=== PATIENT | female | born 1980 | race Caucasian/White ===

== ENCOUNTER → 2018-04-02 | Outpatient (CLI) | payer BC ==
--- NOTE | 2018-04-03 10:43 | MM ---
Reason for exam: additional evaluation requested from prior study. Last mammogram was performed 9 years and 10 months ago. History: Patient had first child at age 33. Family history of breast cancer in grandmother at age 42 and breast cancer in maternal aunt at age 37. Reductions of both breasts, 2007. Taking hormonal contraceptives for 10 years beginning at age 18. Physical Findings: Nurse Summary: less than 0.5cm nodule in the right breast at 12 o'clock and 5 o'clock (nurse sharee). MG 3D Diag Mammo W/Cad MARINA Bilateral CC and MLO view(s) were taken. Prior study comparison: June 15, 2008, bilateral digital screening mammogram. The breast tissue is heterogeneously dense. This may lower the sensitivity of mammography. Scattered benign calcifications. There is no discrete abnormality. No significant new findings when compared with previous films. These results were verbally communicated with the patient and result sheet given to the patient on 04/02/18. ASSESSMENT: Incomplete: need additional imaging evaluation, BI-RAD 0 RECOMMENDATION: Ultrasound of both breasts.
--- NOTE | 2018-04-03 10:46 | USB ---
Reason for exam: additional evaluation requested from abnormal screening. History: Patient had first child at age 33. Family history of breast cancer in grandmother at age 42 and breast cancer in maternal aunt at age 37. Reductions of both breasts, 2007. Taking hormonal contraceptives for 10 years beginning at age 18. US Breast BILAT Right complete breast ultrasound includes all four quadrants, the retroareolar region and axilla. Finding demonstrates no cystic or solid lesion seen. Left complete breast ultrasound includes all four quadrants, the retroareolar region and axilla. Finding demonstrates a 0.7 x 0.8 x 0.4cm oval, solid, duct ectasia at the posterior nipple for which a biopsy is recommended. These results were verbally communicated with the patient and result sheet given to the patient on 04/02/18. ASSESSMENT: Suspicious, BI-RAD 4 RECOMMENDATION: Ultrasound core biopsy of the left breast. Manage patient on a clinical basis. Called Dr. Peralta with mammographic findings and has scheduled an appointment for the patient for 04/30/18 at 9:[address] Castro. Biopsy scheduled for 04/21/18 at 12:20. PRELIMINARY REPORT CALLED AND FAXED TO DR. CASTRO ON 04/03/18.
== END | disposition home or self-care (01) ==
LOC: RADMAMWWP 15:07
PROVIDERS: ATTEND Family Medicine
DX: R92.8 Other abnormal and inconclusive findings on diagnostic imaging of breast (principal); N63.0 Unspecified lump in unspecified breast
CPT/HCPCS: 77062; 77066

== ENCOUNTER → 2018-04-21 | Day surgery (SDC) | payer BC ==
[2018-04-21 11:45] VITALS: RESP 16; TEMP 98.1; BMI 31.4
--- NOTE | 2018-04-21 13:27 | USB ---
EXAMINATION TYPE: US biopsy breast VAD LT, MG diagnostic mammo LT wo CAD DATE OF EXAM: 04/21/2018 CLINICAL HISTORY: R92.8 abnormal mammogram. Abnormal ultrasound. TECHNIQUE: Ultrasound guided core biopsy of left breast with clip placement and follow-up diagnostic two-view mammogram. COMPARISON: Mammogram and ultrasound April 02, 2018. FINDINGS: The procedure of ultrasound guided core biopsy was explained to the patient. Benefits, alternatives, and risks were discussed. An informed consent was then obtained. The patient was placed in supine positioning for imaging and for the procedure. Preprocedure ultrasound redemonstrates an oval roughly 8 mm lesion subareolar region of left breast that is taller greater than wide and fairly well-circumscribed with peripheral fluid component and more central hyperechoic component could reflect solid tissue or debris. The overlying skin was prepped and draped in usual sterile fashion. Lidocaine buffered with bicarbonate was used as anesthetic into the skin and subcutaneous tissue up to area of concern in the left breast. Lidocaine with epinephrine is used as anesthetic into the deeper tissue. Under ultrasound guidance, a 12-gauge vacuum assisted biopsy gun device was used to obtain 3 core samples. Following this, a biopsy clip was left in lesion. Lesion became virtually nonidentifiable after sampling. Lesion originally had tough hard rim but became easier to access after biopsy. The patient tolerated the procedure well without any immediate complication. The patient was kept in the radiology department for short stay after the procedure and then discharged home in stable condition. IMPRESSION: Successful, uncomplicated ultrasound guided core biopsy of area of concern in the left breast, full pathology results to follow. Low to intermediate index of suspicion noted at time of procedure. Favor debris- filled cyst. Cannot exclude papilloma. Pathology Results: Benign BREAST, LEFT, ULTRASOUND GUIDED CORE BIOPSY: Fibrocystic changes including cyst wall with adjacent stromal fibrosis and chronic inflammation. Recommendation Follow up ultrasound of the left breast in 6 months. REBECCAD
[2018-04-21 13:54] VITALS: BP 119/77; PULSE 78
== END | disposition home or self-care (01) ==
LOC: RADUSWWP 11:09
PROVIDERS: ATTEND Surgery
DX: N60.32 Fibrosclerosis of left breast (principal); Z88.2 Allergy status to sulfonamides
CPT/HCPCS: 88305; 77065; 19083; A4648; J2001

== ENCOUNTER → 2018-11-11 | Outpatient (CLI) | payer BC ==
--- NOTE | 2018-11-12 08:01 | USB ---
Reason for exam: follow-up at short interval from prior study. History: Patient had first child at age 33. Family history of breast cancer in grandmother at age 42 and breast cancer in maternal aunt at age 37. Benign US biopsy breast VAD LT of the left breast, April 21, 2018. Reductions of both breasts, 2007. Taking hormonal contraceptives for 10 years beginning at age 18. Physical Findings: Nurse did not find any significant physical abnormalities on exam. US Breast LT Left complete breast ultrasound includes all four quadrants, the retroareolar region and axilla. Finding demonstrates a 9 x 4 x 8mm oval, solid, hypoechoic lesion at the posterior nipple. These results were verbally communicated with the patient and result sheet given to the patient on 11/11/18. ASSESSMENT: Benign, BI-RAD 2 RECOMMENDATION: Routine screening mammogram of both breasts at age 41.
== END | disposition home or self-care (01) ==
LOC: RADUSWWP 15:21
PROVIDERS: ATTEND Surgery
DX: R92.8 Other abnormal and inconclusive findings on diagnostic imaging of breast (principal)

== ENCOUNTER → 2019-02-04 | Outpatient (CLI) | payer BC ==
[2019-02-04 16:19] LABS: LDL Cholesterol,Calculated 51.2 mg/dL (0.0-131.0); VLDL Calculation 24.8 mg/dL (5.00-40.00)
== END | disposition home or self-care (01) ==
LOC: LABWHC1 10:42
PROVIDERS: ATTEND Nurse Practitioner Family
DX: Z13.220 Encounter for screening for lipoid disorders (principal)
CPT/HCPCS: 36415; 80061

== ENCOUNTER → 2019-10-07 | Outpatient (CLI) | payer BC ==
--- NOTE | 2019-10-07 15:41 | MR ---
EXAMINATION TYPE: MR brain wo/w con DATE OF EXAM: 10/07/2019 COMPARISON: NONE HISTORY: Papillitis per order. History of right-sided weakness and numbness along with dizziness and hearing loss TECHNIQUE: Multiplanar, multisequence images of the brain and brainstem is performed without and with IV contras t, utilizing 8.5 mL intravenous Gadavist . FINDINGS: Diffusion weighted images demonstrate no evidence of a recent infarct or other diffusion ab normality. There is no extra-axial fluid collection or significant white matter signal abnormality. The ventricular system and cisternal spaces are normal in size and appearance. The brain volume is age appropriate. Midline structures demonstrate normal morphology. The craniocervical junction appears within normal limits. Post contrast images demonstrate no abnormal enhancement. The dural venous sinuses appear pa tent. The visualized sinuses are clear. The globes show some artifact degradation otherwise are unrem arkable. IMPRESSION: Unremarkable study.
== END | disposition home or self-care (01) ==
LOC: RADMRIMAIN 14:40
PROVIDERS: ATTEND Ophthalmology
DX: H46.03 Optic papillitis, bilateral (principal)
CPT/HCPCS: 70553; A9585

== ENCOUNTER → 2020-05-01 | Outpatient (CLI) | payer BC | END | disposition home or self-care (01) | LOC: LABWHC1 07:23 | PROVIDERS: ATTEND Radiology Neuroradiology | DX: Z01.812 Encounter for preprocedural laboratory examination (principal); Z20.828 Contact with and (suspected) exposure to other viral communicable diseases | CPT/HCPCS: U0003; C9803 ==

== ENCOUNTER → 2020-10-19 | Outpatient (CLI) | payer BC ==
--- NOTE | 2020-10-20 03:09 | MR ---
EXAMINATION TYPE: MR venography head wo con DATE OF EXAM: 10/19/2020 COMPARISON: None HISTORY: ICP, headaches, swollen optic nerve MR venogram images of the brain were obtained without contrast. There is venous flow signal demonstrated in the superior sagittal sinus. Sigmoid sinus and straight s inus show normal signal pattern. Transverse sinus is larger on the right side than the left. There is flow in both jugular veins. There is incomplete signal pattern in the posterior aspect of the sagitt al sinus that could be limited thrombus. IMPRESSION: Incomplete signal pattern in the posterior aspect of the sagittal sinus could be some limited thrombu s that is not changed compared to the recent MR scan of 10/07/2019.
== END | disposition home or self-care (01) ==
LOC: RADMRIMAIN 17:15
PROVIDERS: ATTEND Student in an Organized Health Care Education/Training Program
DX: R93.0 Abnormal findings on diagnostic imaging of skull and head, not elsewhere classified (principal)
CPT/HCPCS: 70544

== ENCOUNTER → 2020-12-27 | Outpatient (CLI) | payer BC ==
--- NOTE | 2020-12-27 08:59 | CT ---
EXAMINATION TYPE: CT brain w con DATE OF EXAM: 12/27/2020 COMPARISON: MRI brain October 07, 2019 HISTORY: benign intracranial hypertension, Abn MRI, loss of vision, pressure MCINTYRE CT DLP: 892.1 mGycm. Automated Exposure Control for Dose Reduction was Utilized. TECHNIQUE: CT scan of the head is performed with IV Contrast, patient injected with 100 mL of Isovu e 300. FINDINGS: The ventricles and sulci remain stable in appearance within normal limits in size. Postco ntrast images show no suspicious enhancing intraparenchymal mass. The globes are intact and the visua lized sinuses are clear. IMPRESSION: Unremarkable study.
== END | disposition home or self-care (01) ==
LOC: RADCTMAIN 08:18
PROVIDERS: ATTEND Student in an Organized Health Care Education/Training Program
DX: G93.2 Benign intracranial hypertension (principal)
CPT/HCPCS: 70460; Q9967

== ENCOUNTER → 2021-11-15 | Outpatient (CLI) | payer OTHER ==
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
== END | disposition home or self-care (01) ==
LOC: RADXRMAIN 17:32
PROVIDERS: ATTEND Emergency Medicine
DX: S50.11XA Contusion of right forearm, initial encounter (principal); Y09 Assault by unspecified means

== ENCOUNTER → 2023-03-20 | Outpatient (CLI) | payer BC ==
--- NOTE | 2023-03-22 17:09 | MM ---
Reason for Exam: Screening (asymptomatic). Last mammogram was performed 3 year(s) and 1 month(s) ago. Patient History: Menarche at age 14. First Full-Term at age 33. Late child-bearing (after 31). Patient has history of breast feeding. Hormonal Contraceptives for 10 years from age 18 until age 38. 2008, Bilateral Reduction. 04/21/2018, Benign Core Biopsy on the left side. Maternal grandmother had breast cancer, age 42. Maternal aunt had breast cancer, age 37. Last menstrual period: 03/17/2023 Risk Values: Alicia 5 year model risk: 1.4%. NCI Lifetime model risk: 16.1%. Prior Study Comparison: 04/02/2018 Bilateral Diagnostic Mammogram, [facility]. 04/21/2018 Left Diagnostic Mammogram, [facility]. 03/09/2020 Bilateral Screening Mammogram, [facility]. Tissue Density: There are scattered fibroglandular densities. Findings: Analyzed By CAD. There is no suspicious group of microcalcifications or new suspicious mass in either breast. Overall Assessment: Negative, BI-RAD 1 Management: Screening Mammogram of both breasts in 1 year. . Patient should continue monthly self-breast exams. A clinical breast exam by your physician is recommended on an annual basis. This exam should not preclude additional follow-up of suspicious palpable abnormalities. Note on Alicia scores and lifetime risk: 1. A Alicia score greater than 3% is considered moderate risk. If this is the case, consider specialist referral to assess eligibility for a risk reducing agent. 2. If overall lifetime risk for the development of breast cancer is 20% or higher, the patient may qualify for future screening with alternating mammogram and breast MRI. Electronically signed and approved by: Torey Brown M.D. Radiologist
== END | disposition home or self-care (01) ==
LOC: RADMAMWWP 16:19
PROVIDERS: ATTEND Obstetrics & Gynecology
DX: Z12.31 Encounter for screening mammogram for malignant neoplasm of breast (principal); Z80.3 Family history of malignant neoplasm of breast
CPT/HCPCS: 77063; 77067

== ENCOUNTER → 2023-05-19 | Outpatient (CLI) | payer BC ==
[2023-05-20 03:31] LABS: Basophils # (A) 0.04 X 10*3/uL (0.00-0.10); Basophils % (A) 0.4 %; Eosinophils # (A) 0.11 X 10*3/uL (0.04-0.35); Eosinophils % (A) 1.2 %; HCT 38.8 % (37.2-46.3); HGB 12.2 d/dL (12.0-15.0); Lymphocytes # (A) 2.59 X 10*3/uL (0.90-5.00); Lymphocytes % (A) 27.7 %; MCHC 31.4 d/dL (32.0-37.0); Mean Platelet Volume 10.8 FL (9.5-12.2); Monocytes # (A) 0.65 X 10*3/uL (0.20-1.00); NRBC Per 100 WBC 0 X 10*3/uL (0.00-0.01); Neutrophils # (A) 5.94 X 10*3/uL (1.80-7.70); Neutrophils % (A) 63.5 %; Platelet Count 298 X 10*3/uL (140-440); RBC 4.36 X 10*6/uL (4.10-5.20); RDW 13.4 % (11.5-14.5); WBC 9.35 X 10*3/uL (4.50-10.00)
== END | disposition home or self-care (01) ==
LOC: LABPAT 15:45
PROVIDERS: ATTEND Obstetrics & Gynecology
DX: Z01.818 Encounter for other preprocedural examination (principal); N25.9 Disorder resulting from impaired renal tubular function, unspecified; N93.8 Other specified abnormal uterine and vaginal bleeding
CPT/HCPCS: 36415; 85025; 93005

== ENCOUNTER 2023-06-02 05:47 | Day surgery (SDC) | payer BC ==
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
[~2023-06-02 05:47] MED LIST: Pre Op ABX Message 1 EACH MISC MISCELLANE ONE
[2023-06-02] MEDS ORDERED: DEXAMETHASONE SOD PHOSPHATE 4 MG/ML 1 ML VIAL IV ONE (06:07)
[2023-06-02] MEDS ORDERED: LACTATED RINGERS 1,000 ML IV SCH (06:07)
[2023-06-02] MEDS ORDERED: ONDANSETRON 4 MG/2 ML VIAL IVP ONE (06:07)
[2023-06-02] MEDS ORDERED: SCOPOLAMINE 1 MG/72 HR PATCH TRANSDERM ONE (06:07)
[2023-06-02] MEDS ORDERED: LIDOCAINE 1% (10MG/ML) FOR IV START INTRADERMA ONE (06:27)
[2023-06-02] MEDS ORDERED: KETOROLAC 15 MG/ML 1 ML VIAL ONE (06:52)
[2023-06-02] MEDS ORDERED: PROPOFOL 10 MG/ML 20 ML VIAL IV ONE (06:52)
[2023-06-02] MEDS ORDERED: LIDOCAINE 1% INJ 10MG/ML (20 ML MDV) ONE (06:52)
[2023-06-02] MEDS ORDERED: fentaNYL (PF) 50 MCG/ML 2 ML AMP ONE (06:52)
[2023-06-02] MEDS ORDERED: MIDAZOLAM 2 MG/2 ML VIAL ONE (06:52)
[2023-06-02] MEDS ORDERED: MIDAZOLAM 2 MG/2 ML VIAL IV PRN (07:00)
[2023-06-02] MEDS ORDERED: HYDROmorphone 0.5 MG/0.5 ML SYRINGE IVP PRN (07:00)
--- NOTE | 2023-06-02 07:36 | P.OP ---
Date of Procedure: 06/02/23 Preoperative Diagnosis: Abnormal Uterine Bleeding Postoperative Diagnosis: Same Procedure(s) Performed: Hysteroscopy Dilation and Curettage, Novasure Endometrial Ablation Implants: None Anesthesia: NAKIA Surgeon: Darcy Story Estimated Blood Loss (ml): 5 IV fluids (ml): 400 Urine output (ml): 200 (clear yellow) Pathology: other (endeomtrial curettings) Condition: stable Disposition: same day Indications for Procedure: Ms. Pabon is a 43 year old with AUB presenting for surgical management. Risks, benefits, and alternatives to Hysteroscopy D&C with Novasure Ablation are discussed with the patient including risk of bleeding, infection, and uterine peforation with damage to surrounding structures. The patient desires proceed with surgery. All questions answered. Operative Findings: Anteverted uterus sounds to 9.5 centimeters. Shaggy, proliferative type endometrium noted on hysteroscopy. Description of Procedure: Patient is brought to the operating suite and placed in the dorsal lithotomy position. The cervix vagina and perineal body are prepped and draped in the usual sterile fashion. The bladder is drained for approximately 200 mL of clear yellow urine. The weighted speculum was placed into the vagina. Examination under anesthesia reveals a small anteverted mobile smooth uterus, negative adnexa bilaterally. Anterior lip of the cervix was grasped with a double-tooth tenaculum. The uterus sounds to a depth of 9.5 cm in the anteverted position. The Hanks dilators are used to dilate the cervix to 12 mm. The hysteroscope was then introduced and the cavity is noted to be free of polyps fibroids tumors or other defects. Saline infusion is used to distend the endometrial cavity. The hysteroscope is then removed and the cervix is dilated to 18 mm. The endometrial wand is placed and seated properly. Uterine depth of 6.5 cm is noted, uterine width of 3.5 cm is also noted. The machine is properly c alibrated and enabled. For a time of 49 seconds, and a power of 125 W, the procedure is carried out. When completed the wand is collapsed and removed. The hysteroscope was once again introduced and the cavity is noted to be completely and uniformly blanched. All sponge needle and instrument counts are correct. She will use ibuprofen and tylenol as needed for pain. The patient is given Toradol prior to leaving the operative suite. She will follow up in the office with me in 2 weeks. Written and verbal instructions are given to the family.
[2023-06-02 07:53] VITALS: TEMP 96.9
[2023-06-02] MEDS ORDERED: ACETAMINOPHEN TAB 325 MG TAB ONE (08:38)
[2023-06-02] MEDS ORDERED: ACETAMINOPHEN TAB 325 MG TAB PO ONE (08:41)
[2023-06-02 08:57] VITALS: RESP 20
[2023-06-02 09:31] VITALS: BP 118/81; PULSE 67
== END 2023-06-02 10:06 | disposition home or self-care (01) ==
LOC: OR 05:47
PROVIDERS: ATTEND Obstetrics & Gynecology
DX: N93.9 Abnormal uterine and vaginal bleeding, unspecified (principal); D25.9 Leiomyoma of uterus, unspecified; I10 Essential (primary) hypertension; E03.9 Hypothyroidism, unspecified; K21.9 Gastro-esophageal reflux disease without esophagitis; J30.2 Other seasonal allergic rhinitis; Z79.899 Other long term (current) drug therapy; Z98.890 Other specified postprocedural states; Z88.2 Allergy status to sulfonamides
CPT/HCPCS: 58563; 81025; 88305; J2250; J1100; J2405; J2001; J3010; J1885; J2704

== ENCOUNTER 2023-07-28 15:18 | Emergency (ER) | payer BC ==
[2023-07-28 15:38] VITALS: TEMP 98.8
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
[2023-07-28 17:17] LABS: Basophils # (A) 0.1 k/uL (0-0.2); Basophils % (A) 1 %; Eosinophils # (A) 0.2 k/uL (0-0.7); Eosinophils % (A) 1 %; HCT 41.1 % (34.0-46.0); HGB 13.3 gm/dL (11.4-16.0); Lymphocytes # (A) 3.2 k/uL (1.0-4.8); Lymphocytes % (A) 25 %; MCH 28.1 pg (25.0-35.0); MCHC 32.5 g/dL (31.0-37.0); MCV 86.5 fL (80.0-100.0); Monocytes # (A) 0.4 k/uL (0-1.0); Monocytes % (A) 3 %; Neutrophils # (A) 8.7 k/uL (1.3-7.7); Neutrophils % (A) 69 %; Platelet Count 329 k/uL (150-450); RBC 4.75 m/uL (3.80-5.40); RDW 13.4 % (11.5-15.5); WBC 12.7 k/uL (3.8-10.6)
[2023-07-28 17:26] LABS: ALT 35 U/L (4-34); African American GFR (CKD) >90 (>60 ml/min/1.73 sqM); Anion Gap 7 mmol/L; Blood Urea Nitrogen 15 mg/dL (7-17); Calcium 9.1 mg/dL (8.4-10.2); Carbon Dioxide 25 mmol/L (22-30); Chloride 104 mmol/L (98-107); Glucose 96 mg/dL (74-99); Non-African American GFR(CKD) >90 (>60 ml/min/1.73 sqM); Sodium 136 mmol/L (137-145); Total Bilirubin 0.8 mg/dL (0.2-1.3)
[2023-07-28 17:36] LABS: AST 32 U/L (14-36); Albumin 4.4 g/dL (3.5-5.0); Alkaline Phosphatase 84 U/L (38-126); Potassium 4.2 mmol/L (3.5-5.1); Total Protein 7.6 g/dL (6.3-8.2)
[2023-07-28 19:25] LABS: INR 0.9 (<1.2); Prothrombin Time 9.9 sec (10.0-12.5)
[2023-07-28 19:30] LABS: Partial Thromboplastin Time 20.3 sec (22.0-30.0)
[2023-07-28] MEDS ORDERED: KETOROLAC 15 MG/ML 1 ML VIAL IVP STA (21:14)
--- NOTE | 2023-07-28 21:17 | CT ---
EXAMINATION TYPE: CT angio chest CT DLP: 500 mGycm, Automated exposure control for dose reduction was used. DATE OF EXAM: 07/28/2023 9:03 PM COMPARISON: Chest radiograph from same day. . CLINICAL INDICATION:Female, 43 years old with history of gabriela/pos dimer; GABRIELA, CP, positive D-dimer. TECHNIQUE/CONTRAST: CTA scan of the thorax is performed with IV Contrast, patient injected with 110 ml mL of Isovue 370, MIP images are created and reviewed these are created on a separate workstation.. GABRIELA, CP, positive D-dimer. Pt extravasated 100cc of isovue 370 contrast. A second IV was placed and p t extravasated 10cc of isovue 370 contrast. ER did not want to attempt again, for right now he de cided to just send through what imaging we were able to obtain. No prior. ABC FINDINGS: Pulmonary Artery: Nondiagnostic exam of the pulmonary trunk and pulmonary arterial vasculature due to bolus timing. Lungs/Pleura: No evidence of focal consolidation, pleural effusion or pneumothorax. Airway: Large airways are patent. Heart: Heart is within normal limits for size. Vasculature: No evidence of intimal flap to suggest dissection. No aneurysm identified. Scattered ath erosclerotic disease. Mediastinum: No gross evidence of adenopathy. Musculoskeletal: Mild degenerative disc disease changes are present throughout the thoracolumbar spin e. Scoliosis changes of the spine. Soft Tissues: Unremarkable. Lower neck: No significant findings. Upper Abdomen: No significant findings. IMPRESSION: 1. Motion limited exam without evidence for acute thoracic process. 2. Nondiagnostic pulmonary embolus exam due to bolus timing.
[2023-07-28 21:38] LABS: Appearance,Urine Cloudy (Clear); Bacteria,Urine Rare /hpf; Bilirubin,Urine Negative (Negative); Blood,Urine Negative (Negative); Color,Urine Light Yellow; Glucose,Urine (UA) Negative (Negative); Ketones,Urine Negative (Negative); Leukocyte Esterase,Urine Negative (Negative); Mucus,Urine Few /hpf; Nitrite,Urine Negative (Negative); Protein,Urine Negative (Negative); RBC,Urine 2 /hpf (0-5); Specific Gravity,Urine 1.021 (1.001-1.035); Squamous Epithelial Cell,Urine 3 /hpf (0-4); Urobilinogen,Urine <2.0 mg/dL (<2.0); WBC,Urine 1 /hpf (0-5)
[2023-07-28] MEDS ORDERED: ACET/COD 300 MG/30 MG STARTER PACK 6 TAB BTL PO STA (22:35)
[2023-07-28 22:53] VITALS: BP 114/76; PULSE 76; RESP 16
== END 2023-07-28 22:52 | disposition home or self-care (01) ==
LOC: EC 15:18
DX: R06.00 Dyspnea, unspecified (principal); T80.818A Extravasation of other vesicant agent, initial encounter; I10 Essential (primary) hypertension; Z79.899 Other long term (current) drug therapy; Z20.822 Contact with and (suspected) exposure to COVID-19; Z88.2 Allergy status to sulfonamides; Z88.1 Allergy status to other antibiotic agents
CPT/HCPCS: 99284; 36415; 93005; 85379; 80053; 83605; 84484; 85025; 85610; 85730; 81001; 87636; 71275; Q9967

== ENCOUNTER → 2024-10-08 | Outpatient (CLI) | payer BC ==
--- NOTE | 2024-10-08 12:29 | MM ---
Reason for Exam: Screening (asymptomatic). Last mammogram was performed 1 year(s) and 6 month(s) ago. Patient History: Menarche at age 14. First Full-Term at age 33. Late child-bearing (after 30). Premenopausal. Patient has history of breast feeding. Hormonal Contraceptives for 10 years from age 18 until age 38. 2008, Bilateral Reduction. 04/21/2018, Benign Core Biopsy on the left side. Paternal grandmother had breast cancer, age 42. Maternal aunt had breast cancer, age 37. Risk Values: Alicia 5 year model risk: 1.6%. NCI Lifetime model risk: 15.9%. Prior Study Comparison: 04/21/2018 Left Diagnostic Mammogram, [facility]. 03/09/2020 Bilateral Screening Mammogram, [facility]. 03/20/2023 Bilateral MG 3D screening mammo w/cad, [facility]. Tissue Density: The breasts are heterogeneously dense, which may obscure small masses. Findings: Analyzed By CAD. There is no suspicious group of microcalcifications or new suspicious mass in either breast. Overall Assessment: Benign, BI-RAD 2 Management: Screening Mammogram of both breasts in 1 year. . Patient should continue monthly self-breast exams. A clinical breast exam by your physician is recommended on an annual basis. This exam should not preclude additional follow-up of suspicious palpable abnormalities. Note on Alicia scores and lifetime risk: 1. A Alicia score greater than 3% is considered moderate risk. If this is the case, consider specialist referral to assess eligibility for a risk reducing agent. 2. If overall lifetime risk for the development of breast cancer is 20% or higher, the patient may qualify for future screening with alternating mammogram and breast MRI. [facility], , 10/08/2024 12:27 PM. Electronically signed and approved by: Peyman Roach M.D. Radiologis
== END | disposition home or self-care (01) ==
LOC: RADMAMWWP 11:05
PROVIDERS: ATTEND Obstetrics & Gynecology
DX: Z12.31 Encounter for screening mammogram for malignant neoplasm of breast (principal); R92.333 Mammographic heterogeneous density, bilateral breasts; Z80.3 Family history of malignant neoplasm of breast; Z92.0 Personal history of contraception
CPT/HCPCS: 77063; 77067

== ENCOUNTER → 2024-10-18 | Outpatient (CLI) | payer BC ==
[2024-10-18 15:04] LABS: Basophils # (A) 0.08 X 10*3/uL (0.00-0.10); Eosinophils # (A) 0.09 X 10*3/uL (0.04-0.35); Eosinophils % (A) 1.1 %; HCT 39.3 % (37.2-46.3); HGB 12.4 g/dL (12.0-15.0); Lymphocytes # (A) 2.19 X 10*3/uL (0.90-5.00); Lymphocytes % (A) 26.2 %; MCHC 31.6 g/dL (32.0-37.0); MCV 88.7 FL (80.0-97.0); Mean Platelet Volume 11.1 FL (9.5-12.2); Monocytes # (A) 0.64 X 10*3/uL (0.20-1.00); Monocytes % (A) 7.7 %; NRBC Per 100 WBC 0 X 10*3/uL (0.00-0.01); Neutrophils # (A) 5.34 X 10*3/uL (1.80-7.70); Neutrophils % (A) 63.8 %; Platelet Count 314 X 10*3/uL (140-440); RBC 4.43 X 10*6/uL (4.10-5.20); RDW 13.5 % (11.5-14.5); WBC 8.36 X 10*3/uL (4.50-10.00)
[2024-10-18 15:35] LABS: BUN/Creat Ratio 16.71 Ratio (12.00-20.00); Blood Urea Nitrogen 11.7 mg/dL (9.0-27.0); Glucose 115 mg/dL (70-110); LDL Cholesterol,Calculated 62.4 mg/dL (0.0-131.0)
[2024-10-18 15:36] LABS: ALT 31 U/L (8-44); AST 23 U/L (13-35); Albumin 4.3 g/dL (3.8-4.9); Albumin/Globulin Ratio 1.59 Ratio (1.60-3.17); Alkaline Phosphatase 86 U/L (41-126); Calcium 9.1 mg/dL (8.7-10.3); Carbon Dioxide 25.1 mmol/L (21.6-31.8); Chloride 103 mmol/L (96-109); Globulin 2.7 g/dL (1.6-3.3); Potassium 4.4 mmol/L (3.5-5.5); Sodium 139 mmol/L (135-145); Total Bilirubin 0.4 mg/dL (0.3-1.2)
== END | disposition home or self-care (01) ==
LOC: LABWHC1 08:24
PROVIDERS: ATTEND Nurse Practitioner Family
DX: Z13.228 Encounter for screening for other metabolic disorders (principal); Z13.29 Encounter for screening for other suspected endocrine disorder; I10 Essential (primary) hypertension; E21.5 Disorder of parathyroid gland, unspecified; E56.9 Vitamin deficiency, unspecified
CPT/HCPCS: 36415; 80053; 80061; 82306; 84443; 85025

== ENCOUNTER → 2024-10-19 | Outpatient (CLI) | payer BC ==
--- NOTE | 2024-10-19 10:09 | US ---
EXAMINATION TYPE: US abdomen limited DATE OF EXAM: 10/19/2024 COMPARISON: NONE CLINICAL INDICATION: Female, 44 years old with history of R10.11 RIGHT UPPER QUADRANT PAIN; Right upp er quadrant TECHNIQUE: Grayscale and color Doppler imaging of the right upper quadrant was performed. FINDINGS: EXAM MEASUREMENTS: Liver Length: 16.2 cm Gallbladder Wall: 0.2 cm CBD: 0.3 cm Right Kidney: 9.9 x 5.4 x 6.6 cm CONCRETE PLACEMENT EQUIPMENT OPERATOR NOTES: Pancreas: portions seen wnl, obscured by overlying bowel gas Liver: wnl, difficult to penetrate Gallbladder: wnl Evidence for sonographic Watkins's sign: No CBD: wnl Right Kidney: wnl Exam limited by overlying bowel gas. Liver is heterogeneously hyperechoic suggesting diffuse fatty in filtrative hepatocellular disease. This limits evaluation for focal masses. No ascites or biliary dil atation noted. IMPRESSION: No shadowing mobile gallstones or sonographic evidence for acute cholecystitis. [facility], , 10/19/2024 10:07 AM
== END | disposition home or self-care (01) ==
LOC: RADUSWWP 09:27
PROVIDERS: ATTEND Family Medicine
DX: R10.11 Right upper quadrant pain (principal)
CPT/HCPCS: 76705

== ENCOUNTER 2025-02-10 07:51 | Day surgery (SDC) | payer BC ==
[2025-02-03 15:56] VITALS: BMI 34.7
[2025-02-10] MEDS ORDERED: MIDAZOLAM 2 MG/2 ML VIAL IV PRN (07:53)
[2025-02-10] MEDS: IV FLUID CONTINUATION 1,000 ML IV ONE (08:17)
[2025-02-10] MEDS: ONDANSETRON 4 MG/2 ML VIAL IVP ONE (08:32)
[2025-02-10] MEDS: SCOPOLAMINE 1 MG/72 HR PATCH TRANSDERM ONE (08:32)
[2025-02-10] MEDS: LACTATED RINGERS 1,000 ML IV SCH (08:32)
[2025-02-10] MEDS: DEXAMETHASONE SOD PHOSPHATE 4 MG/ML 1 ML VIAL IV ONE (08:33)
[2025-02-10] MEDS ORDERED: HYDROmorphone (PF) 1 MG/ML ONE (09:22)
[2025-02-10] MEDS ORDERED: GLYCOPYRROLATE 0.2 MG/ML 2 ML VIAL ONE (09:22)
[2025-02-10] MEDS ORDERED: ACETAMINOPHEN IV (For NPO) 1,000 MG/100 ML VIAL ONE (09:22)
[2025-02-10] MEDS ORDERED: fentaNYL (PF) 50 MCG/ML 2 ML AMP ONE (09:22)
[2025-02-10] MEDS ORDERED: ROCURONIUM 10 MG/ML (5 ML VIAL) IV ONE (09:22)
[2025-02-10] MEDS ORDERED: MIDAZOLAM 2 MG/2 ML VIAL ONE (09:22)
[2025-02-10] MEDS ORDERED: PROPOFOL 10 MG/ML 20 ML VIAL IV ONE (09:22)
[2025-02-10] MEDS ORDERED: KETOROLAC 15 MG/ML 1 ML VIAL ONE (09:22)
[2025-02-10] MEDS ORDERED: LIDOCAINE 1% INJ 10MG/ML (20 ML MDV) ONE (09:22)
[2025-02-10] MEDS ORDERED: SUCCINYLCHOLINE CHLORIDE 200 MG/10 ML VIAL IV ONE (09:22)
[2025-02-10] MEDS ORDERED: NEOSTIGMINE 1 MG/ML 10 ML VIAL ONE (09:22)
[2025-02-10] MEDS: BUPIVACAINE (PF) 0.25% 30 ML VIAL SQ ONE ×2 (09:53→10:18)
[2025-02-10] MEDS: LACTATED RINGERS 1,000 ML IV ONE (10:12)
[2025-02-10 10:41] VITALS: TEMP 97
--- NOTE | 2025-02-10 11:15 | P.OP ---
Date of Procedure: 02/10/25 Preoperative Diagnosis: 1. Chronic right pelvic pain 2. Right hydrosalpinx Postoperative Diagnosis: Same Procedure(s) Performed: Diagnostic Laparoscopy, Right Salpingectomy Implants: None Anesthesia: VIOLETTEA Surgeon: Darcy Story Estimated Blood Loss (ml): 10 IV fluids (ml): 900 Urine output (ml): 25 Pathology: other (right fallopian tube) Condition: stable Disposition: same day Indications for Procedure: Ms. Pabon is a 44 year old female with right sided pelvic pain and finding of right hydrosalpinx on US who presents for diagnostic laparoscopic and right salpingectomy to address the pain. Risks, benefits, and alternatives to surgery are discussed with the patient including risk of bleeding, infection, damage to surrounding structures, and post-operative VTE. The patient understan ds these risks and desires to proceed with surgery as discuss. All questions are answered. Operative Findings: Grossly normal appearing pelvis. No adhesions appreciated. Uterus with a large posterior fibroid. Right fallopian tube with multiple paraovarian cysts. Left fallopian tube normal. Bilateral ovaries grossly normal. Appendix visualized to be normal. Liver appears normal. Description of Procedure: Patient was taken to the OR with IV fluid running and pneumatic compression stockings on both legs. General anesthesia was obtained without difficulty. The patient was placed in the dorsal lithotomy position with Casey-type stirrups with knees bent at 30 degree angles. Examination under anesthesia revealed a normal-sized, anteverted uterus. The patient as prepared and draped. The bladder was emptied. A speculum was placed into the vagina. The anterior lip of the cervix was grasped with a single-toothed tenaculum. A uterine manipulator was introduced. A horizontal skin incision was made at the umbilical fold. The periumbilical skin was manually elevated. The Veress needle was introduced into the peritoneal cavity at a straight angle without difficulty. A saline drop test was performed to validate intraperitoneal placement. The pneumoperitoneum was established with CO2 gas to a pressure of 15mmHg. A 5mm trocar was inserted into the abdomen under direct laparoscopic visualization. Intraabdominal survey revealed lack of any visceral or vascular injury. The pelvic and abdominal anatomy was noted as above. Two additional laparoscopic assit ports were placed in the right and left lower quadrants. A Samantha Grasper was used to belt picker the fimbriated end of the right fallopian tube. The LigaSure device was used to seal and ligate the fallopian tube sequentially to the level of the uterine cornua. The fallopian tube was then transected and removed through the laparoscopic port. Excellent hemostasis was noted at the end of the case. The patient tolerated the procedure well. The skin incisions were all closed with 4- 0 Monocryl in a subcuticular fashion. All instruments were removed from the abdomen and vagina, and all counts were correct times two. The patient was taken to the recovery room in stable condition.the recovery room in stable condition.
[2025-02-10] MEDS: HYDROmorphone 0.5 MG/0.5 ML SYRINGE IVP PRN (11:21)
[2025-02-10 12:32] VITALS: BP 127/78; PULSE 78; RESP 18
== END 2025-02-10 13:08 | disposition home or self-care (01) ==
LOC: OR 07:51
PROVIDERS: ATTEND Obstetrics & Gynecology
DX: N70.11 Chronic salpingitis (principal); N83.8 Other noninflammatory disorders of ovary, fallopian tube and broad ligament; D25.1 Intramural leiomyoma of uterus; N85.4 Malposition of uterus; N83.02 Follicular cyst of left ovary; N83.01 Follicular cyst of right ovary; I10 Essential (primary) hypertension; Z79.620 Long term (current) use of immunosuppressive biologic; Z79.899 Other long term (current) drug therapy; Z87.410 Personal history of cervical dysplasia; Z88.1 Allergy status to other antibiotic agents
CPT/HCPCS: 58661; 81025; J2250; J0330; J1100; J2710; J2405; J2003; J3010; J1171 ×2; J0131; J1885; J2704; J0665; J1596; 88302